=== PATIENT | female | born 1985 | race Caucasian/White ===

== ENCOUNTER → 2021-09-02 11:05 | Outpatient (BNVA) | payer MEDICAID, SELFPAY | PROVIDERS: PCP Nurse Practitioner; Visit Provider Nurse Practitioner | DX: E11.65 Type 2 diabetes mellitus with hyperglycemia (principal) | CPT/HCPCS: 80053; 80061; 81000; 83036; 84443; 85025 ==

== ENCOUNTER → 2021-10-07 09:31 | Outpatient (BNVA) | payer MEDICAID, SELFPAY | PROVIDERS: PCP Nurse Practitioner; Visit Provider Nurse Practitioner | DX: E11.65 Type 2 diabetes mellitus with hyperglycemia (principal) | CPT/HCPCS: 80048 ==

== ENCOUNTER → 2021-11-24 13:54 | Outpatient (BNVA) | payer MEDICAID, SELFPAY | PROVIDERS: PCP Nurse Practitioner; Visit Provider Nurse Practitioner Family | DX: Z20.822 Contact with and (suspected) exposure to COVID-19 (principal); J01.00 Acute maxillary sinusitis, unspecified | CPT/HCPCS: 87635 ==

== ENCOUNTER → 2022-01-20 14:35 | Outpatient (BNVA) | payer MEDICAID, SELFPAY | PROVIDERS: PCP Nurse Practitioner; Visit Provider Nurse Practitioner | DX: E11.65 Type 2 diabetes mellitus with hyperglycemia (principal); M79.18 Myalgia, other site | CPT/HCPCS: 80053; 81000; 83036 ==

== ENCOUNTER 2022-05-13 20:38 | Emergency (ER) | payer MEDICAID, SELFPAY ==
[2022-05-13 20:56] VITALS: BP 138/88; PULSE 100; RESP 18; TEMP 36.7; O2SAT 96
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
[2022-05-13] MEDS: doxycycline 100 mg Tablet PO (22:25)
== END 2022-05-13 22:50 | disposition home or self-care (01) ==
PROVIDERS: Emergency Provider Nurse Practitioner Family; PCP Nurse Practitioner
DX: S00.83XA Contusion of other part of head, initial encounter (principal); Z79.899 Other long term (current) drug therapy; Z79.84 Long term (current) use of oral hypoglycemic drugs; E11.9 Type 2 diabetes mellitus without complications; Z87.891 Personal history of nicotine dependence; Y04.2XXA Assault by strike against or bumped into by another person, initial encounter
CPT/HCPCS: 70150; 99283